=== PATIENT | male | born 1985 | race Caucasian/White ===

== ENCOUNTER 2020-10-24 06:17 | Emergency (ER) | payer MEDICAID ==
[~2020-10-24] VITALS: Ht 170.2 cm; Wt 90.9 kg
[2020-10-24] MEDS ORDERED: [UNRECOGNIZED DRUG - OTHER] (06:44)
[2020-10-24] MEDS ORDERED: [UNRECOGNIZED DRUG - OTHER] PO (06:44)
[2020-10-24] MEDS ORDERED: FEXO-23 PO (06:44)
[2020-10-24] MEDS ORDERED: IPRATROPIUM BROMIDE 0.5 MG/2.5 ML NEB SOLUTION NEB ONE (07:00)
[2020-10-24] MEDS ORDERED: ALBUTEROL SULFATE 2.5 MG/0.5 ML NEB SOLUTION NEB ONE (07:00)
[2020-10-24] MEDS ORDERED: ALBUTEROL SULFATE HFA 90 MCG/PUFF 8 GM INHALER IH ONE (07:45)
[2020-10-24 07:55] VITALS: BP 149/74
== END 2020-10-24 08:04 | disposition home or self-care (01) ==
LOC: EMS 06:18
DX: J45.909 Unspecified asthma, uncomplicated (principal); J32.9 Chronic sinusitis, unspecified; I10 Essential (primary) hypertension
CPT/HCPCS: 94640; J3535; J7613; Z7502